=== PATIENT | male | born 1970 | race Caucasian/White ===

== ENCOUNTER 2016-12-22 13:48 | Emergency (ER) | payer OTHER ==
[~2016-12-22] VITALS: Ht 175.3 cm; Wt 103.4 kg
[2016-12-22 13:55] VITALS: TEMP 98.4; Ht 175.3 cm; Wt 103.4 kg
--- NOTE | 2016-12-22 14:03 | ERPDOC ---
Departure Disposition Decision Date: Dec 22, 2016 Disposition Decision Time: 14:59 Disposition: 01 DISCHARGED HOME, SELF-CARE Impression Impression Impression: Primary Impression: Laceration of left foot Encounter type: initial encounter Qualified Codes: S91.312A - Laceration without foreign body, left foot, initial encounter Severity: Moderate Condition: Stable Seen By: Physician only Patient Instructions: Care For Your Stitches (ED) Problems/Meds/Labs Reviewed?: Yes Medications reviewed and manag: Yes Additional Instructions: Elevate your leg for the next 2 days, recommend ibuprofen and acetaminophen as needed, will provide small amount of tramadol 1-2 tabs every 6 hours as needed for severe pain Keflex 500 mg 3 times a day for a week Follow-up with your primary medical physician or work comp physician for removal of stitches in 2 weeks Departure Forms: Return to Work/School Permit Return to Work/School Date: Dec 24, 2016 Follow up care ordered?: Yes Mental Status: Alert, Oriented Scripts Cephalexin (Keflex) 500 Mg Capsule 500 MG PO TID for 7 Days, #21 CAP 0 Refills Prov: LAZARO SWEET MD 12/22/16 Tramadol HCl (Tramadol HCl) 50 Mg Tablet 1-2 TAB PO Q6H Y for PAIN, #10 TAB Prov: LAZARO SWEET MD 12/22/16 HPI General Chief Complaint: Laceration Stated Complaint: PAIN/SWELLING OF TOES LEFT FOOT Time Seen by Provider: 14:02 Source: patient Exam Limitations: no limitations HPI Foot/Ankle Initial Comments Patient is a 46-year-old male presents emergency room for evaluation of pain and swelling of the toes of his left foot. 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 Patient brought to the ER for evaluation. 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) Associated Symptoms: pain with extension, pain with flexion, pain with standing , swelling Allergies: Coded Allergies: No Known Allergies (Unverified , 12/22/16) Past History Past Medical History Pt denies signifigant PMH Surgical History Denies Surgeries Social History Smoking Status: Never smoker Substance Use Type: does not use Alcohol Intake: none Review of Systems Constitutional Constitutional: DENIES: appetite decrease, chills, dizziness, fever, weakness ENMT Sinuses: DENIES: congestion, rhinorrhea Mouth/Throat: DENIES: scratchy throat, sore throat Cardiovascular Cardiac: DENIES: chest pain, dyspnea on exertion Pulmonary Respiratory: DENIES: cough, dyspnea, sputum, tachypnea GI Upper Abdomen: DENIES: nausea, pain, vomiting Lower Abdomen: DENIES: constipation, diarrhea, pain Musculoskeletal General: see HPI Integumentary Skin: see HPI Endocrine Endocrine: DENIES: heat/cold intolerance Hematologic/Lymphatic Hematologic/Lymphatic: DENIES: anemia Exam General General Nourishment: well nourished, well developed [place] Foot/Ankle Foot/Ankle : Leg: Left Leg: NOT FOUND: contusion, deformity, discoloration, numbness, swelling, tender, weakness Ankle: swelling, NOT FOUND: decreased ROM, numbness, tender lat. foot, tender lat. malleolus, tender med. malleolus, tender mid foot, weakness Foot: other (patient has laceration approximately 1.5 cm at the base of the 4th digit), swelling, NOT FOUND: tender 1st MTP joint Toes: cap refill <2 sec ea toe, decreased ROM, erythema, NOT FOUND: deformity, nail avulsion, subungual hematoma Posterior Tibial Pulse: 3+ Dorsalis Pedis Pulse: 3+ Neurologic RN Documented GCS Eye Opening: Verbal: Motor: Total: Differential Diagnoses Considering: Contusion, Fracture, Sprain, Strain, Other (laceration) Procedures Procedures Performed Procedures Performed: Laceration Repair Laceration/Wound Repair Wound/Laceration Repair : Wound Location: lower extremity Wound Length (cm): 1.5 Depth, Shape: superficial, linear Explored: clean Irrigated: saline Prep: sureclens Anesthesia: 1% Lidocaine Volume Anesthetic (ccs): 4 Type of Block: local Wound Revision?: No Repaired With: Sutures Suture Size: 5:0 Suture Type: prolene Number of Sutures: 4 Sterile Dressing Applied?: No Splint Applied?: No Sling Applied?: No Progress Results/Orders Orders Procedure Category Date Status Time Lidocaine 1% PHA 12/22/16 Complete (Xylocaine 1%) 14:30 Dressing (Ed) EDM 12/22/16 Transmitted 14:23 Irrigate/Clean Wound EDM 12/22/16 Transmitted 14:23 Neomycin/Polymyxin/Bacitracin PHA 12/22/16 Complete (Neosporin 14:30 Hydrocodone/Acetaminophen PHA 12/22/16 Complete ([place] 5/325) 14:30 Foot Left 3 Views RAD 12/22/16 Resulted 14:23 Medications Current ED Medications Lidocaine HCl (Xylocaine 1%) 100 mg O ONCE INFIL ; Start 12/22/16 at 14:30; Stop 12/22/16 at 14:31; Status DC Neomycin/ Polymyxin/ Bacitracin (Neosporin) 1 applic O ONCE TOP ; Start at 14:30; Stop 12/22/16 at 14:31; Status DC Acetaminophen/ Hydrocodone Bitart ([place] 5/325) 1 tab O ONCE PO Last administered on 12/22/16t 14:28; Start 12/22/16 at 14:30; Stop 12/22/16 at 14:31 ; Status DC LAZARO SWEET MD Dec 22, 2016 14:03
[2016-12-22] MEDS ORDERED: NO ROUTINE MEDS (14:07)
--- NOTE | 2016-12-22 14:22 | NUR ---
DR SWEET WITH PT
[2016-12-22] MEDS ORDERED: LIDOCAINE 1% (10mg/ml) 30ml SDV INFIL ONE (14:30)
[2016-12-22] MEDS ORDERED: HYDROCODONE/APAP 5 mg/325 mg TABLET PO ONE (14:30)
[2016-12-22] MEDS ORDERED: NEOMYCIN/POLYM/BACITR OINT PACKET TOP ONE (14:30)
--- NOTE | 2016-12-22 14:43 | DI ---
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 Subcutaneous gas seen in the dorsal soft tissues overlying the mid to distal metatarsals laterally suggesting soft tissue injury. No radiopaque foreign body identified. Impression: No acute osseous abnormality. .
[2016-12-22] MEDS ORDERED: CEPH-583 PO (15:03)
[2016-12-22] MEDS ORDERED: TRAM50TA4 PO (15:03)
[2016-12-22 15:15] VITALS: BP 118/75; PULSE 77; RESP 18; O2SAT 95
== END 2016-12-22 15:15 | disposition home or self-care (01) ==
LOC: ED 13:48
DX: S91.312A Laceration without foreign body, left foot, initial encounter (principal); W31.89XA Contact with other specified machinery, initial encounter; Y93.89 Activity, other specified; Y92.9 Unspecified place or not applicable; Y99.0 Civilian activity done for income or pay